=== PATIENT | female | born 1980 | race Asian ===

== ENCOUNTER 2021-12-07 06:29 | Inpatient (IN) | payer OTHER ==
[2021-12-01 15:32] LABS: Absolute Lymphocytes (CBC) 1.6 K/uL (0.7-4.9); Hematocrit 38.2 % (36.0-45.0); Lymphocytes % 32.5 % (15.3-44.8); RBC Red Blood Cell Count 4.39 M/uL (3.86-4.86)
[2021-12-01 15:55] LABS: Urine Appearance CLEAR (Clear); Urine Color YELLOW (Yellow); Urine Glucose NEGATIVE (Negative); Urine Specific Gravity >=1.030 (1.005-1.030)
[2021-12-01 15:56] LABS: Urine Bacteria <20 /HPF (<20); Urine Bilirubin NEGATIVE (Negative); Urine Blood 1+ (Negative); Urine Microscopic Reflex ORDER UMIC; Urine Protein NEGATIVE (Negative); Urine RBC <5 /HPF (NONE SEEN); Urine Urobilinogen 0.2 mg/dL (0.2-1.0); Urine pH 5.5 (5.0-7.0)
[2021-12-07] MEDS ORDERED: Ringers Lactate 1,000 ML IV ONE (06:47)
[2021-12-07] MEDS ORDERED: BUPIVACAINE 0.75% (PF) 2 ML SP ONE (07:03)
[2021-12-07] MEDS ORDERED: MORPHINE SULFATE/PF 1 MG/ML (10 ML AMP) ONE (07:04)
[2021-12-07] MEDS ORDERED: LIDOCAINE 2% MPF 5 ML VIAL ONE (07:06)
[2021-12-07] MEDS ORDERED: KETAMINE HCL 500 MG/5 ML VIAL ONE (07:06)
[2021-12-07] MEDS ORDERED: propofoL 200 MG/20 ML VIAL IV ONE ×3 (07:06→10:14)
[2021-12-07] MEDS ORDERED: MIDAZOLAM HCL 2 MG/2 ML INJ ONE (07:07)
[2021-12-07] MEDS ORDERED: NS 0.9% VIAL 10 ML ONE ×2 (07:18→07:37)
[2021-12-07] MEDS ORDERED: NA CHLORIDE 0.9% 100 ML IV ONE (07:21)
[2021-12-07] MEDS ORDERED: VASOPRESSIN 20 UNIT/ML VIAL ONE (07:21)
[2021-12-07] MEDS: CEFAZOLIN/SWI 2gm 2 GM/20 ML SYR ONE ×2 (07:33→08:00)
[2021-12-07] MEDS ORDERED: LIDOCAINE 1% MPF 2 ML AMPULE ONE (07:36)
[2021-12-07] MEDS ORDERED: Phenylephrine HCl 10 MG/ML 1 ML VIAL ONE (07:37)
[2021-12-07] MEDS: BUPIVACAINE 0.25% PF 10 ML VIAL ONE ×2 (08:01→08:15)
[2021-12-07] MEDS ORDERED: GLYCOPYRROLATE 0.2 MG/ML SYR ONE (08:30)
[2021-12-07] MEDS: Ringers Lactate 1,000 ML IV ONE ×2 (08:30→08:34)
[2021-12-07] MEDS ORDERED: PROMETHAZINE INJ 25 MG/ML AMP IV PRN (10:38)
--- NOTE | 2021-12-07 10:45 | P.BOP ---
Preoperative diagnosis: leomyomata Postoperative diagnosis: same and endometriosis/ adenomyoma Primary procedure: laparotomy, myomectomy, endometriosis excision [employer]: Erin Rea (endometriosis on low anterior wall ) Estimated blood loss: min Specimen: fibroids and endometriosis Findings: 2 large groups of myomata,2 other small ones removed, normal tubes ovaries Anesthesia: Spinal Complications: None Fluids & blood products: UO 500 Transferred to: Recovery Room Condition: Good
[2021-12-07] MEDS ORDERED: NALOXONE 0.4 MG/ML VIAL IV PRN (10:46)
[2021-12-07] MEDS ORDERED: HYDROMORPHONE/PCA 10 MG/50 ML SYR IV PRN (10:46)
--- OUTSIDE RECORDS SUMMARY | 2021-12-07 10:52 | XMS REPORT | Continuity of Care Document ---
:1980 Author Organization [facility] t Address [address] [place] [address] [address] [place] [address] Care Team Providers Name Role Phone Zunilda Marcano Attending Clinician Unavailable ALEXANDER Attending Clinician Unavailable Gina Marcano Admitting Clinician Unavailable Payers Payer Name Policy Type Policy Number Effective Date Expiration Date S ource Problems This patient has no known problems. Allergies, Adverse Reactions, Alerts This patient has no known allergies or adverse reactions. Medications This patient has no known medications. Procedures This patient has no known procedures. Encounters Start End Encounter Admission Attending Care Care Encounter Source Date/Time Date/Time Type Type Clinicians Facility Department ID 2021-08-09 Outpatient Jeet DOMINIQUE FOX [id number] [facility] 09:17:54 Zunilda 36 [facility] 2021-08-09 2021-08-09 Outpatient GEOVANY Marcano DOMINIQUE USMaría [id number] [facility] 07:58:00 07:58:00 [facility] [id number] [facility] 2021-03-01 2021-03-01 [id number] [address] [place] 12:31:13 13:08:31 [facility] Results Test Description Test Time Test Comments Results Result [facility] e Comments - [facility] 2021-08-09 COMPLETE 09:14:00 [facility])Name: CHRIS LIN : 1980 Sex: F * Name: CRHIS LIN [facility] : 1980 Age/S: 40 / F [address] [facility] Unit #: [id number] Loc: [place] [address] Phys: Zunilda Marcano MD Acct: [id number] Dis Date: Status: REG CLI PHONE #: [phone] Exam Date: 08/09/2021 08 FAX #: [phone] Reason: D21.9 EXAMS: CPT CODE: [id number] US PELVIS COMPLETE 23005 HISTORY: Fibroids. COMPARISON: None available. Location: [facility]. Transabdominal and transvaginal (for better endometrial and ovarian evaluation) pelvic ultrasound. Anteverted uterus is markedly enlarged at 15.6 x 8.8 x 9.5 cm. Diffuse leiomyomatous changes. Endometrium is obscured in presence of innumerable fibroids measuring up to 8.2 cm uterine body in the intramural location. Multiple smaller fibroids as well. Cervix is poorly visible. Color and Doppler flow are not visualized on this examination within the ovaries. Right ovary measured 4.3 x 1.9 x 1.8 cm. Left ovary is measuring 2.7 x 1.3 x 1.6 cm. No free fluid. IMPRESSION: Markedly enlarged uterus with diffuse leiomyomatous changes. Innumerable fibroids measuring up to 8.2 cm in the myometrial location. Endometrium is not imaged on this exam. Ovaries appear grossly normal. Color Doppler flow is not imaged. at 0914 Reported and signed by: Magdaleno Nino M.D. CC: Zunilda Marcano MD Technologist: Adebayo HENDRIX Trn[facility] Date/Time: 08/09/2021 (913) [email or web address] Orig Print D/T: S: 08/09/2021 (09) Probe: PAGE 1 Signed Report - US TRANSVAGINAL 2021-08-09 NON OB 09:14:00 [facility]Name: CHRIS LIN : 1980 Sex: F * Name: CHRIS LIN [facility] : 1980 Age/S: 40 / F [address] [facility] Unit #: [id number] Loc: [place] [address] Phys: Zunilda Marcano MD Acct: [id number] Dis Date: Status: REG CLI PHONE #: [phone] Exam Date: 08/09/2021 0851 FAX #: [phone] Reason: EXAMS: CPT CODE: [id number] [place] [address] HISTORY: Fibroids. COMPARISON: None available. Location: [facility]. Transabdominal and transvaginal (for better endometrial and ovarian evaluation) pelvic ultrasound. Anteverted uterus is markedly enlarged at 15.6 x 8.8 x 9.5 cm. Diffuse leiomyomatous changes. Endometrium is obscured in presence of innumerable fibroids measuring up to 8.2 cm uterine body in the intramural location. Multiple smaller fibroids as well. Cervix is poorly visible. Color and Doppler flow are not visualized on this examination within the ovaries. Right ovary measured 4.3 x 1.9 x 1.8 cm. Left ovary is measuring 2.7 x 1.3 x 1.6 cm. No free fluid. IMPRESSION: Markedly enlarged uterus with diffuse leiomyomatous changes. Innumerable fibroids measuring up to 8.2 cm in the myometrial location. Endometrium is not imaged on this exam. Ovaries appear grossly normal. Color Doppler flow is not imaged. at 0914 Reported and signed by: Magdaleno Nino M.D. CC: Zunilda Marcano MD Technologist: Adebayo HENDRIX Trnscb Date/Time: 08/09/2021 (913) [email or web address] Orig Print D/T: S: 08/09/2021 (0917) Probe: [id number] PAGE 1 Signed Report
[2021-12-07] MEDS ORDERED: Mastisol Adhesive Liq ONE (10:56)
[2021-12-07 13:05] VITALS: O2SAT 99
[2021-12-07] MEDS ORDERED: METHYLERGONOVINE 0.2MG/ML AMP IM ONE (13:44)
[2021-12-07] MEDS: Ringers Lactate 1,000 ML IV SCH (16:54)
[2021-12-07] MEDS: IBUPROFEN 600 MG TAB PO SCH ×2 (16:58→22:29)
[2021-12-08] MEDS: Ringers Lactate 1,000 ML IV SCH ×3 (00:37→16:59)
--- NOTE | 2021-12-08 02:47 | OP ---
Date of Procedure: 12/07/2021 Surgeon: Esperanza Winston MD Handle Bar Assembler: Erin Rea. Preoperative Diagnosis: Leiomyomata. Postoperative Diagnoses: Leiomyomata, endometriosis, adenomyoma. Procedures Performed: Laparotomy, myomectomy, endometriosis excision. Anesthesia: Spinal. Specimens: Fibroids and endometriosis. Estimated Blood Loss: Minimal. Urine Output: 500. Complications: No complications. Drains: No drains. Specimens: Two large groups of leiomyomata, multiple ones, however, present and excised and 2 other smaller ones, one large pedunculated group from the left anterior aspect of the myoma that was presen t on the anterior right aspect of the uterus. Then that right anterior wall myoma that appeared to b e mostly transmural without entry into the endometrial cavity was completely removed. There were 2 o ther fibroids that were removed through the same thing and they were handed out together. Then, a separate incision was made in the posterior wall. Then, 2 other fibroids, one in the posteri or wall at the top of the right fundus and then anterior wall leiomyoma, which is in the inferior asp ect on the left lower wall, these were intramural with an extension to the subserosa. Then, the endo metriosis was present on the anterior wall on the medial aspect of the myoma that was on the left low anterior wall. Endometriosis was excised completely and one implant was removed along with the serosa of the fibroid s, the other one had to be excised separately, which appeared to be extending to become an adenomyoma or adenomyoma surfacing tissue and endometriotic implant that was large on the anterior w all. This was excised in completion with normal, healthy myometrium exposed, which was then repaired in 3 layers. All the sites of the fibroids were closed in 3 layers. Tubes and ovaries were inspected and complete ly unremarkable. The uterus was nice and small after complete excision of the fibroids and reconstru ctions. The patient is a 41-year-old female, who presented with large fibroids, had an imaging study that she had brought in, and evaluated her clinically. She had an endometrial sampling procedure in the offi ce, which was negative for atypia, malignancy, or leiomyosarcoma and an MRI of the pelvis was obtaine d and was able to visualize the location of the fibroids, so decided that this is a procedure that co uld be performed easily here and then this would be the end of the process. The patient and her had significantly serious discussions about preservation of uterus and ot herwise, the patient strongly feels that she wanted to preserve her uterus if possible unless it is n ot feasible to perform an adequate myomectomy. Then, she was okay with hysterectomy, but otherwise w anted to preserve her fertility. Procedure In Detail: She was consented and brought to the OR. 2 g of Ancef were given. SCDs were p laced. Placed in a supine fashion on the operating table. After general anesthesia was given, she w as placed in a dorsal lithotomy position. Santo was placed to drain the bladder and left draining to the bottom. Then, abdomen, vulva, vagina were prepped and draped in a sterile fashion. Then, upper abdominal wall was covered. There was the lower midline incision that I made with the help of a [address] to the fascia. Fascia was incised with curved Mayos, then the recti and pulled up the peritoneum underneath and the posterior wall of the fascia and the top one-third of the lower abdominal wall was also incised and the peritoneal cavity was entered and the peritoneum taken down all the way extending the entire extent of the incision. Once this was done, the fibroids were pulled out, first the top one, then second one, and then the entire uterus. Dilute vasopressin 40 units mixed in 60 cc of normal saline, 15 cc each was injected at the base of t he first leiomyoma. This was the pedunculated one, was removed with the help of excision after enter ing the appropriate layer of the myometrium. Once this was completely excised from its base and lida led out, the myometrium surrounding it was preserved, then went on to make another incision along the fibroid that was on the anterior right wall and the base was injected with another 50 cc of the solu tion with vasopressin. Then, Bovie was used to get to the deepest layer where the myoma could be she lled out. Once 5-6 cm incision was made on the top and got into the layer of the myoma sheath, then myoma was excised completely from its surrounding tissue. The base was taken out with the help of ca utery and tied with a stitch tie. There was excellent hemostasis in this entire procedure. The 2 ot her additional leiomyomata were shelled out through this, attached to the bigger one. Once these were all handed out, reconstruction of these 2 areas was completed. There was an extra la rolf of the myoma sheath that was left behind and this was excised. endometrial canal clos ure with 0 Vicryl on the first layer, then second layer and third layer with 2-0 PDS, baseball stitch on the top for complete closure without exposure of any suture. Attention was directed to the posterior myoma. Injection at the base with the dilute vasopressin 10 cc. The incision made across in a transverse fashion and myoma shelled out. Then, suturing was done with 2 layers using 2-0 PDS in the 2 layers and then, the top was closure with the baseball stitch. When coming down to the left anterior wall, injected the rest of the vasopressin at the base and mid incision to do a myomectomy. Once this was done, the endometriosis was immediately contiguous medial and superior to it on the anterior wall. with the help of a needle-tip Bovie and then ta kassy down until healthy tissue seen, this was pretty close to the endometrial canal. The small piece of myometrium infiltrated with endometriosis as well as the serosa infiltrated with endometriosis was removed and excised. No other such implants have been seen, the one prior was included with the she ath with the tissue of the fibroids on the right anterior wall. This was closed with the help of 2-0 PDS in 3 layers, then 3-layer closure for the other myomectomy site as well. No evidence of any inj ury to the large vessels supplying the fibroid. Once the 3-layer closure was performed here on both of these excised area, there was excellent apposi tion without any exposure of sutures and good reduction of the uterus and both tubes and ovaries were inspected for endometriosis and nothing was found. Then, thorough irrigation and suction were perfo rmed and all the contents were reduced back into the abdominal cavity and closed with the help of 0 o n the posterior sheath, tying edges stitch to each other, then peritoneal closure with the help of 3- 0 Vicryl, then rectus muscles were together with 0 Vicryl interrupted sutures x2. Then, fascial inci sydni closed with the help of [address] down to the bottom, the top area about a centimeter th at was closed with Vicryl. The thorough irrigation and suction were performed. 3-0 chromic was used to close the subcutaneous t issues and subcuticular tissues, then 4-0 Monocryl was used to close the skin in a continuous running fashion. Snato was removed. The patient was recovered from anesthesia and taken to PACU in stable condition. Since she had a spinal anesthetic, she received an intrathecal dose of morphine, which wo uld last 24 hours, so not given a prior [employer]OR pump for this patient and went on to proceed and give her ibuprofen q.6 hours. JOSE/MARY Voice ID: [id number] Report ID: [id number]
[2021-12-08] MEDS: IBUPROFEN 600 MG TAB PO SCH ×2 (04:45→05:00)
[2021-12-08 04:53] LABS: Absolute Lymphocytes (CBC) 1.3 K/uL (0.7-4.9); Hematocrit 32.6 % (36.0-45.0); Lymphocytes % 18.3 % (15.3-44.8); MPV 9.2 fL (7.6-11.3); RBC Red Blood Cell Count 3.74 M/uL (3.86-4.86)
[2021-12-08] MEDS: IBUPROFEN 200 MG TAB PO PRN ×2 (14:54→22:52)
[2021-12-09] MEDS: IBUPROFEN 200 MG TAB PO PRN (07:30)
[2021-12-09 10:13] VITALS: BP 97/51; TEMP 98
== END 2021-12-09 10:05 | disposition home or self-care (01) | DRG 743 ==
LOC: OR 06:29 → 2ND-WC 10:39
PROVIDERS: ADMIT Obstetrics & Gynecology; ATTEND Obstetrics & Gynecology
PROC: 0WBF0ZZ Excision of Abdominal Wall, Open Approach (ICD-10-PCS; 2021-12-07)
PROC: 0UB90ZZ Excision of Uterus, Open Approach (ICD-10-PCS; principal; 2021-12-07 07:30)
DX: D25.9 Leiomyoma of uterus, unspecified (principal); R19.00 Intra-abdominal and pelvic swelling, mass and lump, unspecified site; N97.9 Female infertility, unspecified; N80.8 Other endometriosis
CPT/HCPCS: 36415; 81003; 81015; 85025; 86850; 86900; 86901; 88305; 94010; J0690; J2210; J2250; J2370; J2704; J7120; U0003